=== PATIENT | male | born 1990 | race Caucasian/White ===

== ENCOUNTER 2017-03-20 09:49 | Emergency (ER) | payer OTHER ==
--- NOTE | ~2017-03-20 | EKG ---
PATIENT: MYA SHAVER UNIT #: [id number] Ventricular Rate: 105 BPM Atrial Rate: 105 BPM P-R Interval: 138 ms QRS Duration: 76 ms Q-T Interval: 328 ms QTC Calculation(Bezet): 433 ms P [place]: 76 degrees Calculated R [place]: 79 degrees Calculated T [place]: 50 degrees Diagnosis Line: Sinus tachycardia Diagnosis Line: Cannot rule out Right atrial enlargement Diagnosis Line: Early repolarization Diagnosis Line: Borderline ECG Diagnosis Line: No previous ECGs available Diagnosis Line: Confirmed by SERGIO GOODMAN MD ([id number]) on 03/22/2017 Diagnosis Line: 10:28:00 AM INTERPRETING MD: REX HERR
--- NOTE | ~2017-03-20 | CR72 ---
[facility] A Service of [facility] RADIOLOGY TEXT RESULTS PATIENT: MYA SHAVER LOCATION: [facility] : 88 UNIT #: [id number] AGE: [address]: Hamlet Cope MD SEX: M ORDER DR: [id number] [facility] [address] [place], [place] [address] [id number] MR#: [id number] Acc #: [id number] NAME: MYA SHAVER : 1990 SEX: M STUDY DATE/TIME: 03/19/2017 UNIT: [facility] ROOM: STUDY DESCRIPTION: CR Chest Single View Portable Attending Physician: Hamlet Cope M.D. Ordering Physician: Hamlet Cope M.D. Primary Care Physician: Primary Care Physician No MEDICAL IMAGING REPORT This report is preliminary unless electronic signature is present EXAM Chest portable 03/20/2017 10:45 hours HISTORY 27-year-old man with shortness of air. Patient suffered a syncopal episode while in sitting position today with loss of consciousness and trauma to his chin. Bronchitis for 3 days. COMPARISON 03/18/2017 FINDINGS Portable upright chest demonstrates normal cardiac, mediastinal and hilar contours. The lungs are clear. There is no effusion or pneumothorax. IMPRESSION No acute cardiopulmonary findings. No appreciable change from 03/18/2017. Dictated by... Ursula Dorman M.D. THIS IS AN ELECTRONICALLY VERIFIED REPORT Ursula Dorman M.D. at 03/20/2017 2:28 PM ANTONIOM/anupama TD: 03/20/2017 11:58 JOB #: [id number] MEDICAL IMAGING REPORT Page 1 of 1 COPY
[~2017-03-20 09:49] MED LIST: NO MEDICATIONS
[2017-03-20 10:25] LABS: BASOPHIL# 0.1 X10e3 (0-0.3); BASOPHIL% 0.4 % (0-2.5); EOSINOPHIL# 0.3 X10e3 (0-0.7); EOSINOPHIL% 1.7 % (0.0-7.0); HEMATOCRIT 49.2 % (38.0-50.0); HEMOGLOBIN 16.4 gm/dL (13.0-16.0); LYMPHOCYTE# 2.9 X10e3 (1.0-3.5); LYMPHOCYTE% 18.7 % (17.0-45.0); MEAN CELL VOLUME 85.3 FL (83-96); MEAN CORPUSCULAR HEMOGLOBIN 28.5 PG (28-34); MEAN CORPUSCULAR HGB CONC 33.4 g/dL (30-36); MEAN PLATELET VOLUME 7.3 FL (6.5-11.5); MONOCYTE# 1.8 X10e3 (0-1.0); MONOCYTE% 11.9 % (3.0-12.0); NEUTROPHIL# 10.4 X10e3 (1.5-7.1); NEUTROPHIL% 67.3 % (40-75); PLATELET COUNT 268 X10e3 (140-420); RED BLOOD COUNT 5.77 X10e (3.90-5.60); RED CELL DISTRIBUTION WIDTH 13.9 % (11.0-15.5); WHITE BLOOD COUNT 15.4 X10e3 (4.0-10.5)
[2017-03-20 10:27] LABS: DIFF IND YES
[2017-03-20 10:43] LABS: PLATELET ESTIMATE NORMAL (NORMAL)
[2017-03-20 10:53] LABS: ALBUMIN SERUM 4.8 g/dL (3.5-5.0); BILIRUBIN, DIRECT 0.2 mg/dL (0.0-0.2); BILIRUBIN,INDIRECT 1.5 mg/dL (0.0-0.9); BILIRUBIN,TOTAL 1.7 mg/dL (0.2-2.0); BUN/CREATININE RATIO 23.33; CALCIUM SERUM 9.6 mg/dL (8.4-10.2); CREATININE SERUM 1.5 mg/dL (0.6-1.4); GLOM FILT RATE Estimated 62.5 mL/min (>60); PROTEIN TOTAL SERUM 8.5 g/dL (6.0-8.3)
== END 2017-03-20 11:49 | disposition home or self-care (01) ==
LOC: CED 09:49
PROVIDERS: Emergency Medicine
DX: I95.1 Orthostatic hypotension (principal); E86.1 Hypovolemia; S01.81XA Laceration without foreign body of other part of head, initial encounter; K75.9 Inflammatory liver disease, unspecified; F17.210 Nicotine dependence, cigarettes, uncomplicated; X58.XXXA Exposure to other specified factors, initial encounter
CPT/HCPCS: 12013; 36415; 71010; 80048; 80076; 82947; 85025; 85379; 93005; 96360; 99285